=== PATIENT | female | born 1995 | race American Indian/Alaskan Native ===

== ENCOUNTER 2017-07-07 18:37 | Emergency (ER) | payer MEDICAID ==
[2017-07-07] MEDS ORDERED: MOTRIN PO ONE (23:15)
[2017-07-07] MEDS ORDERED: ROBITUSSIN DM PO ONE (23:16)
--- NOTE | 2017-07-07 23:17 | Emergency Department Report ---
- General Chief Complaint: Upper Respiratory Infection Stated Complaint: MARIA DE JESUS/COLD SYMPTOMS Time Seen by Provider: 07/07/17 22:45 Source: patient Mode of arrival: Ambulatory Limitations: No Limitations - History of Present Illness Initial Comments: 22-year-old female past medical history smoker presents with complaint of sinus congestion sore throat earache and productive cough for 4 days with intermittent fevers and chills. Denies any chest pain denies any shortness of breath. Patient states she has a copper IUD. No pleuritic chest pain. Denies any sick contacts other than her son who is exhibiting similar symptoms. MD Complaint: cough, sore throat, nasal congestion Severity: mild Consistency: intermittent Context: sick contacts Associated Symptoms: sore throat, cough Treatments Prior to Arrival: none - Related Data Previous Rx's Medication Instructions Recorded Last Taken Type ALBUTEROL Inhaler [ProAir HFA 2 puff IH QID PRN #1 inhalation 07/08/17 Unknown Rx Inhaler] Azithromycin [Zithromax Z-ESTIVEN] 250 mg PO QDAY #6 tablet 07/08/17 Unknown Rx Fluticasone [Flonase] 1 spray NS QDAY PRN #1 bottle 07/08/17 Unknown Rx Ibuprofen [Motrin] 600 mg PO Q8H PRN #30 tablet 07/08/17 Unknown Rx Allergies Allergy/AdvReac Type Severity Reaction Status Date / Time antibodic Allergy Unknown Uncoded 07/07/17 22:14 ED Review of Systems ROS: Stated complaint: MARIA DE JESUS/COLD SYMPTOMS Other details as noted in HPI Constitutional: denies: chills, fever Eyes: denies: eye pain, eye discharge, vision change ENT: throat pain, congestion. denies: ear pain Respiratory: denies: cough, shortness of breath, wheezing Cardiovascular: denies: chest pain, palpitations Endocrine: no symptoms reported Gastrointestinal: denies: abdominal pain, nausea, diarrhea Genitourinary: denies: urgency, dysuria, discharge Musculoskeletal: denies: back pain, joint swelling, arthralgia Skin: denies: rash, lesions Neurological: denies: headache, weakness, paresthesias Psychiatric: denies: anxiety, depression Hematological/Lymphatic: denies: easy bleeding, easy bruising ED Past Medical Hx - Past Medical History Previous Medical History?: No - Surgical History Past Surgical History?: Yes Additional Surgical History: abcess to left breast - Social History Smoking Status: Current Some Day Smoker Substance Use Type: None - Medications Home Medications: Home Medications Medication Instructions Recorded Confirmed Last Taken Type ALBUTEROL Inhaler [ProAir HFA 2 puff IH QID PRN #1 inhalation 07/08/17 Unknown Rx Inhaler] Azithromycin [Zithromax Z-ESTIVEN] 250 mg PO QDAY #6 tablet 07/08/17 Unknown Rx Fluticasone [Flonase] 1 spray NS QDAY PRN #1 bottle 07/08/17 Unknown Rx Ibuprofen [Motrin] 600 mg PO Q8H PRN #30 tablet 07/08/17 Unknown Rx ED Physical Exam - General Limitations: No Limitations General appearance: alert, in no apparent distress - Head Head exam: Present: atraumatic, normocephalic - Eye Eye exam: Present: normal appearance, PERRL, EOMI - ENT ENT exam: Present: mucous membranes moist - Expanded ENT Exam Expanded Throat exam: Positive: tonsillar erythema (slight tonsillar erythema no exudates no peritonsillar abscess) - Neck Neck exam: Present: normal inspection, full ROM - Respiratory Respiratory exam: Present: normal lung sounds bilaterally. Absent: respiratory distress - Cardiovascular Cardiovascular Exam: Present: regular rate, normal rhythm. Absent: systolic murmur, diastolic murmur, rubs, gallop - GI/Abdominal GI/Abdominal exam: Present: soft, normal bowel sounds - Extremities Exam Extremities exam: Present: normal inspection - Back Exam Back exam: Present: normal inspection - Neurological Exam Neurological exam: Present: alert, oriented X3 - Psychiatric Psychiatric exam: Present: normal affect, normal mood - Skin Skin exam: Present: warm, dry, intact, normal color. Absent: rash ED Course Vital Signs 07/07/17 22:09 Temperature 98.7 F Pulse Rate 93 H Respiratory 18 Rate Blood Pressure 112/68 O2 Sat by Pulse 100 Oximetry ED Medical Decision Making - Medical Decision Making A/P: Acute bronchitis 1-albuterol inhaler, guaifenesin when necessary, Flonase when necessary 2-azithromycin Z-Estiven course we'll cover empirically as patient is a heavy smoker 3-x-ray unremarkable 4- follow up with primary care doctor Critical care attestation.: If time is entered above; I have spent that time in minutes in the direct care of this critically ill patient, excluding procedure time. ED Disposition Clinical Impression: Upper respiratory infection Qualifiers: URI type: unspecified URI Qualified Code(s): J06.9 - Acute upper respiratory infection, unspecified Disposition: TO HOME OR SELFCARE Is pt being admited?: No Does the pt Need Aspirin: No Condition: Stable Instructions: Upper Respiratory Infection (ED), Viral Syndrome (ED), Cold Symptoms (ED), Acute Bronchitis (ED) Prescriptions: ALBUTEROL Inhaler [ProAir HFA Inhaler] 2 puff IH QID PRN #1 inhalation PRN Reason: Shortness Of Breath Azithromycin [Zithromax Z-ESTIVEN] 250 mg PO QDAY #6 tablet Fluticasone [Flonase] 1 spray NS QDAY PRN #1 bottle PRN Reason: Congestion Ibuprofen [Motrin] 600 mg PO Q8H PRN #30 tablet PRN Reason: Pain Referrals: [facility] [Provider Group] - 3-5 Days [facility] [Provider Group] - 3-5 Days Forms: Work/School Release Form(ED) Time of Disposition: 00:51
[2017-07-08 02:17] VITALS: BP 111/73
--- NOTE | 2017-07-08 07:15 | XRay Report ---
Chest 2 views: History: Worsening cough. Findings: Normal cardiomediastinal silhouette. Trachea is midline. No consolidation, pneumothorax or pleural effusion. Impression: No acute cardiopulmonary findings.
== END 2017-07-08 01:10 | disposition home or self-care (01) ==
LOC: ED 18:37
DX: J06.9 Acute upper respiratory infection, unspecified (principal); F17.200 Nicotine dependence, unspecified, uncomplicated
CPT/HCPCS: 71020; 87116; 87430; 99283